=== PATIENT | female | born 1975 | race American Indian/Alaskan Native ===

== ENCOUNTER 2019-04-03 10:15 | Emergency (ER) | payer OTHER ==
[2019-04-03] MEDS ORDERED: DEXTROSE 50% IN WATER (25GM) 50 ML SYRINGE IV ONE (10:30)
[2019-04-03 10:52] VITALS: BP 170/101
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
== END 2019-04-03 16:07 | disposition home or self-care (01) ==
LOC: ED 10:15
DX: M79.18 Myalgia, other site (principal); V49.49XA Driver injured in collision with other motor vehicles in traffic accident, initial encounter; Y93.89 Activity, other specified; Y92.89 Other specified places as the place of occurrence of the external cause; Y99.8 Other external cause status
CPT/HCPCS: 71046; 93005; 93010; 99283

== ENCOUNTER 2019-07-30 15:40 | Emergency (ER) | payer BC, OTHER ==
[2019-07-30 17:28] VITALS: BP 139/88
--- NOTE | 2019-07-30 17:31 | Emergency Department Report ---
Upper Respiratory HPI - HPI Chief Complaint: Upper Respiratory Infection Stated Complaint: FLU SYM Time Seen by Provider: 07/30/19 17:26 Duration: 3 Days URI Symptoms: Rhinorrhea: No, Sore Throat: No, Ear Pain: No, Cough: Yes, Shortness of Breath: No, Sick Contacts: No, Unable to Take Fluids: No, Urine Output Abnormal: No, Listless Behavior: No Other History: This is a 43-year-old female nontoxic well in appearnce with no signs of distress presents with body aches and dry nonproductive cough x3 days. Patient denies any chest pain, shortness of breathe, fever, chills, nausea, vomiting, headache, stiff neck, abdominal pain, numbness or tingling. Patient denies any recent travels, long car rides, or recent hospital stays. Denies any allergies or significant PMH. - Home Meds and Allergies Allergies/Adverse Reactions: Allergies Allergy/AdvReac Type Severity Reaction Status Date / Time No Known Allergies Allergy Unverified 04/03/19 10:40 ED Review of Systems ROS: Stated complaint: FLU SYM Other details as noted in HPI Constitutional: denies: chills, fever Eyes: denies: eye pain, eye discharge, vision change ENT: congestion. denies: ear pain, throat pain Respiratory: cough. denies: shortness of breath, wheezing Cardiovascular: denies: chest pain, palpitations Endocrine: no symptoms reported Gastrointestinal: denies: abdominal pain, nausea, diarrhea Genitourinary: denies: urgency, dysuria, discharge Musculoskeletal: denies: back pain, joint swelling, arthralgia Skin: denies: rash, lesions Neurological: denies: headache, weakness, paresthesias Psychiatric: denies: anxiety, depression Hematological/Lymphatic: denies: easy bleeding, easy bruising ED Past Medical Hx - Past Medical History Hx Hypertension: Yes - Surgical History Past Surgical History?: No - Social History Smoking Status: Current Some Day Smoker Substance Use Type: Alcohol ED Bronchiolitis Physical Exam - Exam General: Vital signs noted. No distress. Alert and acting appropriately. HEENT: No Pharyngeal Erythema, No Conjuctival Injection, No Dry Mucous Membranes, No Rhinorrhea Ear: Neither TM Bulge, Neither TM Erythema, Neither EAC Discharge Neck: No Adenopathy, No Rigidity Lungs: Yes Clear Lung Sounds, Yes Good Air Exchange, Yes Cough, No Wheezes, No Stridor, No Nasal Flaring, No Retractions, No Use of Accessory Muscles Heart: Yes Regular, No Murmur Abdomen: Yes Normal Bowel Sounds, No Tenderness, No Peritoneal Signs Skin: No Rash, No Eczema Neurologic: Alert and oriented, no deficits. Musculoskeletal: Unremarkable. ED Physical Exam - General Limitations: No Limitations ED Course Vital Signs 07/30/19 17:25 Temperature 98.8 F Pulse Rate 64 Respiratory 17 Rate Blood Pressure 139/88 O2 Sat by Pulse 100 Oximetry - Reevaluation(s) Reevaluation #1: 07/30/19 17:29 Patient is speaking in full sentences with no signs of distress noted. ED Medical Decision Making - Medical Decision Making 43-year-old talone that presents with flu like viral bronchitis like symptoms. Patient is stable and was examined by me. Patient is passed the osvaldo for [place]. Patient was educated on OTC suppurative care and medications. Vital signs are stable. Patient was instructed to Follow-up with a primary care doctor in 3-5 days or if symptoms worsen and continue return to emergency room as soon as possible. At time of discharge, the patient does not seem toxic or ill in appearance. No acute signs of distress noted. Patient agrees to discharge treatment plan of care. No further questions noted by the patient. Critical care attestation.: If time is entered above; I have spent that time in minutes in the direct care of this critically ill patient, excluding procedure time. ED Disposition Clinical Impression: Viral bronchitis Disposition: Z-07 MED SCREENING EXAM-LEFT Is pt being admited?: No Does the pt Need Aspirin: No Condition: Stable Additional Instructions: Follow-up with a primary care doctor in 3-5 days or if symptoms worsen and continue return to emergency room as soon as possible. Referrals: PRIMARY MD GINETTE [Referring] - 3-5 Days ALEKS LANDIN MD [Staff Physician] - 3-5 Days [facility] [Outside] - 3-5 Days Forms: Work/School Release Form(ED)
== END 2019-07-30 17:50 | disposition left against medical advice (07) ==
LOC: ED 15:40
DX: J20.8 Acute bronchitis due to other specified organisms (principal); B97.89 Other viral agents as the cause of diseases classified elsewhere; I10 Essential (primary) hypertension; F17.200 Nicotine dependence, unspecified, uncomplicated
CPT/HCPCS: 99282